=== PATIENT | female | born 1980 | race Native Hawaiian/Other Pacific Islander ===

== ENCOUNTER 2021-12-21 04:05 | Inpatient (IN) | payer OTHER ==
[2021-12-20 12:52] VITALS: BMI 35.0
[2021-12-21] MEDS ORDERED: PHENAZOPYRIDINE HCL 100 MG TABLET (FP) PO ONE (07:00)
[2021-12-21] MEDS ORDERED: BUPIVACAINE LIPOSOME/PF (EXPAREL) 266 MG/20 ML VIAL ONE (07:21)
[2021-12-21] MEDS ORDERED: BUPIVACAINE HCL/PF 0.5% (5MG/ML) 10 ML VIAL ONE (07:21)
[2021-12-21] MEDS ORDERED: MIDAZOLAM HCL 2 MG/2 ML SINGLE DOSE VIAL ONE ×2 (07:22)
[2021-12-21] MEDS ORDERED: HEPARIN NA (PORCINE) 5,000 UNITS/ML 1ML VIAL ONE (07:38)
[2021-12-21] MEDS ORDERED: PROPOFOL 20 ML ONE ×2 (07:51)
[2021-12-21] MEDS ORDERED: SUCCINYLCHOLINE CHLORIDE 200 MG/10 ML SYRINGE ONE (07:51)
[2021-12-21] MEDS ORDERED: HYDROmorphone HCl 2 MG/ML VIAL ONE ×2 (07:51→13:24)
[2021-12-21] MEDS ORDERED: ROCURONIUM BROMIDE 50 MG/5 ML SYRINGE ONE (07:51)
[2021-12-21] MEDS ORDERED: ceFAZolin SODIUM 1 GM VIAL IVPB ONE ×2 (08:02→08:03)
[2021-12-21] MEDS ORDERED: DEXAMETHASONE SOD PHOSPHATE 4 MG/1 ML VIAL ONE ×2 (08:11→10:01)
[2021-12-21] MEDS ORDERED: TRANEXAMIC ACID 1000 MG/10 ML VIAL ONE (08:20)
[2021-12-21] MEDS ORDERED: ceFAZolin SODIUM 1 GM VIAL ONE ×2 (09:39→16:33)
[2021-12-21] MEDS ORDERED: CALCIUM CHLORIDE 1 GM/10 ML *DISP.SYRIN ONE ×2 (09:53→09:54)
[2021-12-21] MEDS ORDERED: KETOROLAC TROMETHAMINE 30 MG/1 ML VIAL ONE (10:20)
[2021-12-21] MEDS ORDERED: ACETAMINOPHEN INJECTION 100 ML IVPB ONE (10:41)
[2021-12-21] MEDS ORDERED: oxyCODONE HCL 5 MG TABLET PO PRN ×3 (10:55→12:16)
[2021-12-21] MEDS ORDERED: ACETAMINOPHEN 1000 MG/100 ML BAG IVPB ONE (10:55)
[2021-12-21] MEDS ORDERED: ONDANSETRON 4 MG/2 ML VIAL IVPUSH PRN ×3 (10:55→12:16)
[2021-12-21] MEDS ORDERED: KETOROLAC TROMETHAMINE 30 MG/1 ML VIAL IVPUSH SCH ×2 (11:00→17:00)
[2021-12-21] MEDS ORDERED: ACETAMINOPHEN 500 MG TABLET (FP) PO SCH (11:00)
[2021-12-21] MEDS ORDERED: LACTATED RINGERS SOLUTION 1,000 ML IV SCH (11:00)
[2021-12-21] MEDS: LACTATED RINGERS SOLUTION 1,000 ML IV SCH (12:10)
[2021-12-21] MEDS ORDERED: BISACODYL 5 MG TABLET.DR (FP) PO PRN (12:16)
[2021-12-21] MEDS ORDERED: DOCUSATE SODIUM 100 MG CAPSULE (FP) PO PRN (12:16)
[2021-12-21] MEDS ORDERED: HYDROmorphone HCL CARPU-JECT 2 MG/1 ML DISP.SYRIN IVPUSH ONE ×3 (13:44→14:12)
[2021-12-21 16:23] LABS: BASO % 0.1 % (0-2.0); HEMATOCRIT 30.2 % (32.4-45.2); HEMOGLOBIN 9.6 GM/dL (10.7-15.3); LYMPH % 4.7 % (8-40); MCH 24.2 pg (25.7-33.7); MEAN CELL VOLUME 75.5 fl (80-96); MEAN PLT VOLUME 8.6 fl (7.5-11.1); MONO % 3.7 % (3.8-10.2); NEUT % 91.5 % (42.8-82.8); PLATELET COUNT 242 10^3/uL (134-434); RBC 3.99 M/mm3 (3.60-5.2); RDW 24.4 % (11.6-15.6); WHITE BLOOD COUNT 14.2 K/mm3 (4.0-10.0)
[2021-12-21] MEDS: ACETAMINOPHEN 1000 MG/100 ML BAG IVPB SCH ×2 (16:26→19:29)
[2021-12-21] MEDS ORDERED: DEXTROSE 5%-WATER - 50 ML IVPB ONE (16:33)
[2021-12-21 16:35] LABS: INR 1.03 (0.83-1.09); PROTHROMBIN TIME (PATIENT) 11.8 SEC (9.7-13.0)
[2021-12-21 16:37] LABS: ACTIVATED PTT 25.3 SECONDS (25.2-36.5)
[2021-12-21 16:44] LABS: CALCIUM 8.4 mg/dL (8.5-10.1)
[2021-12-21 16:45] LABS: ALBUMIN 3.3 g/dl (3.4-5.0)
[2021-12-21 16:48] LABS: CREATININE 0.6 mg/dL (0.55-1.3)
[2021-12-21 16:49] LABS: BILIRUBIN,TOTAL 0.7 mg/dL (0.2-1)
[2021-12-21 16:50] LABS: TOT PROT 6.3 g/dl (6.4-8.2)
[2021-12-21 17:07] LABS: ANISOCYTOSIS 2+; MACROCYTOSIS 2+
[2021-12-21 17:28] LABS: PLATELET ESTIMATE ADEQUATE
[2021-12-21] MEDS: CEFAZOLIN 1 GM in DEXTROSE 5%-WATER - 50 ML IVPB SCH (17:51)
[2021-12-21] MEDS: SIMETHICONE 80 MG TAB.CHEW (FP) PO PRN (19:28)
[2021-12-21 21:47] LABS: HEMATOCRIT 28.5 % (32.4-45.2); HEMOGLOBIN 9.2 GM/dL (10.7-15.3); MCHC 32.1 g/dl (32.0-36.0); MEAN CELL VOLUME 74.8 fl (80-96); PLATELET COUNT 232 10^3/uL (134-434); RBC 3.81 M/mm3 (3.60-5.2); RDW 24.6 % (11.6-15.6); WHITE BLOOD COUNT 14.1 K/mm3 (4.0-10.0)
[2021-12-21] MEDS ORDERED: oxyCODONE HCL 10 MG SUSTAINED ACTING TABLET PO SCH ×2 (22:00)
[2021-12-21 22:07] LABS: CALCIUM 8.4 mg/dL (8.5-10.1)
[2021-12-21 22:08] LABS: BLOOD UREA NITROGEN 10.1 mg/dL (7-18)
[2021-12-21 22:11] LABS: CREATININE 0.6 mg/dL (0.55-1.3)
[2021-12-21] MEDS: oxyCODONE HCL 5 MG TABLET PO PRN (22:53)
[2021-12-22] MEDS ORDERED: DEXTROSE 5%-WATER - 50 ML IVPB ONE ×3 (01:22→17:18)
[2021-12-22] MEDS ORDERED: ceFAZolin SODIUM 1 GM VIAL ONE ×3 (01:23→17:18)
[2021-12-22] MEDS: CEFAZOLIN 1 GM in DEXTROSE 5%-WATER - 50 ML IVPB SCH ×3 (01:51→17:37)
[2021-12-22] MEDS: SIMETHICONE 80 MG TAB.CHEW (FP) PO PRN ×2 (02:55→19:48)
[2021-12-22] MEDS: ACETAMINOPHEN 1000 MG/100 ML BAG IVPB SCH ×2 (02:56→09:29)
[2021-12-22] MEDS: oxyCODONE HCL 5 MG TABLET PO PRN ×2 (06:02→19:59)
[2021-12-22 07:15] LABS: CALCIUM 7.9 mg/dL (8.5-10.1)
[2021-12-22 07:16] LABS: BLOOD UREA NITROGEN 8.7 mg/dL (7-18)
[2021-12-22 07:17] LABS: HEMATOCRIT 25.6 % (32.4-45.2); HEMOGLOBIN 8.3 GM/dL (10.7-15.3); MCH 24.4 pg (25.7-33.7); MCHC 32.6 g/dl (32.0-36.0); MEAN CELL VOLUME 75.1 fl (80-96); MEAN PLT VOLUME 9.1 fl (7.5-11.1); PLATELET COUNT 221 10^3/uL (134-434); RBC 3.41 M/mm3 (3.60-5.2); RDW 24.5 % (11.6-15.6); WHITE BLOOD COUNT 11.7 K/mm3 (4.0-10.0)
[2021-12-22 07:19] LABS: CREATININE 0.6 mg/dL (0.55-1.3)
[2021-12-22] MEDS ORDERED: IBUPROFEN 800 MG/8 ML IJ IVPB SCH (08:45)
[2021-12-22] MEDS ORDERED: ENOXAPARIN NA (PORCINE) 40 MG/0.4 ML DISP.SYRIN SQ SCH (10:00)
[2021-12-22 11:53] VITALS: RESP 18
[2021-12-22] MEDS ORDERED: FAMOTIDINE 10 MG TABLET PO PRN (12:51)
[2021-12-22] MEDS: LACTATED RINGERS SOLUTION 1,000 ML IV SCH (15:00)
[2021-12-22 16:34] LABS: BASO % 0.1 % (0-2.0); EOS % 0.1 % (0-4.5); HEMATOCRIT 26.2 % (32.4-45.2); HEMOGLOBIN 8.4 GM/dL (10.7-15.3); LYMPH % 17.5 % (8-40); MCH 24.2 pg (25.7-33.7); MCHC 32.2 g/dl (32.0-36.0); MEAN CELL VOLUME 75.2 fl (80-96); MEAN PLT VOLUME 8.9 fl (7.5-11.1); MONO % 5.9 % (3.8-10.2); NEUT % 76.4 % (42.8-82.8); PLATELET COUNT 258 10^3/uL (134-434); RBC 3.49 M/mm3 (3.60-5.2); RDW 24.7 % (11.6-15.6); WHITE BLOOD COUNT 13.5 K/mm3 (4.0-10.0)
[2021-12-22] MEDS: ACETAMINOPHEN 500 MG TABLET (FP) PO SCH (17:38)
[2021-12-22] MEDS ORDERED: HEPARIN NA (PORCINE) 5,000 UNITS/ML 1ML VIAL SQ SCH (20:00)
[2021-12-23] MEDS: ACETAMINOPHEN 500 MG TABLET (FP) PO SCH ×2 (00:16→07:14)
[2021-12-23] MEDS ORDERED: HEPARIN NA (PORCINE) 5,000 UNITS/ML 1ML VIAL SQ SCH (06:00)
[2021-12-23] MEDS: SIMETHICONE 80 MG TAB.CHEW (FP) PO PRN (07:12)
[2021-12-23 08:07] LABS: BASO % 0.6 % (0-2.0); EOS % 0.2 % (0-4.5); HEMATOCRIT 25.6 % (32.4-45.2); HEMOGLOBIN 8.2 GM/dL (10.7-15.3); LYMPH % 13.1 % (8-40); MCH 24.3 pg (25.7-33.7); MEAN PLT VOLUME 9.1 fl (7.5-11.1); MONO % 6.8 % (3.8-10.2); NEUT % 79.3 % (42.8-82.8); PLATELET COUNT 244 10^3/uL (134-434); RBC 3.37 M/mm3 (3.60-5.2); RDW 24.9 % (11.6-15.6); WHITE BLOOD COUNT 13.1 K/mm3 (4.0-10.0)
[2021-12-23 08:29] LABS: CALCIUM 8.2 mg/dL (8.5-10.1)
[2021-12-23 08:30] LABS: ALBUMIN 3.3 g/dl (3.4-5.0); BLOOD UREA NITROGEN 4.4 mg/dL (7-18)
[2021-12-23 08:33] LABS: CREATININE 0.6 mg/dL (0.55-1.3)
[2021-12-23 08:35] LABS: TOT PROT 6.5 g/dl (6.4-8.2)
[2021-12-23 08:40] LABS: BILIRUBIN,TOTAL 0.4 mg/dL (0.2-1)
[2021-12-23 10:00] VITALS: BP 120/70; PULSE 94; TEMP 99.5
== END 2021-12-23 11:30 | disposition home or self-care (01) | DRG 519 ==
LOC: J2C 04:05 → EDSTATUS 12:45 → J3W 14:30
PROVIDERS: ADMIT Obstetrics & Gynecology; ATTEND Obstetrics & Gynecology
PROC: 30233K1 Transfusion of Nonautologous Frozen Plasma into Peripheral Vein, Percutaneous Approach (ICD-10-PCS; 2021-12-21)
PROC: 30233N1 Transfusion of Nonautologous Red Blood Cells into Peripheral Vein, Percutaneous Approach (ICD-10-PCS; 2021-12-21)
PROC: 30233R1 Transfusion of Nonautologous Platelets into Peripheral Vein, Percutaneous Approach (ICD-10-PCS; 2021-12-21)
PROC: 0UB90ZZ Excision of Uterus, Open Approach (ICD-10-PCS; principal; 2021-12-21 08:22)
DX: D25.9 Leiomyoma of uterus, unspecified (principal); N80.0 Endometriosis of uterus; D62 Acute posthemorrhagic anemia; N92.0 Excessive and frequent menstruation with regular cycle; E66.9 Obesity, unspecified; Z68.35 Body mass index [BMI] 35.0-35.9, adult
CPT/HCPCS: 36415; 36430; 36511; 80048; 80053; 85025; 85027; 85610; 85730; 86850; 86900; 86901; 86922; 88305-TC; 88331-TC; 94010; 94760; J1644; P9016; P9017; P9034; P9058